=== PATIENT | male | born 1990 | race Caucasian/White ===

== ENCOUNTER 2022-06-05 00:43 | Inpatient (IN) ==
[2022-06-05] MEDS ORDERED: Iopamidol - 370 500 ML MLS IVP ONE (02:13)
[2022-06-05 02:22] LABS: Basophils # 0.1 K/mcL (0.0-0.2); Basophils % 0.5 %; Eosinophils # 0.3 K/mcL (0.0-0.6); Eosinophils % 1.6 %; Hematocrit 44.5 % (37.5-50.1); Immature Granulocytes % 0.3 % (0-4); Lymphocytes # 2.8 K/mcL (0.6-4.6); Lymphocytes % 17.9 %; Mean Corpuscular HGB Conc 33.7 g/dL (31.6-35.5); Mean Corpuscular Hemoglobin 30.4 pg (28.0-33.3); Mean Corpuscular Volume 90.1 fL (83.0-100.0); Mean Platelet Volume 9.3 fL (9.4-12.4); Monocytes # 1.4 K/mcL (0.0-1.3); Monocytes % 8.9 %; Neutrophils # 10.9 K/mcL (1.6-8.9); Platelet Count 454 K/mcL (140-400); Red Blood Count 4.94 M/mcL (4.19-5.50); Red Cell Distribution Width 12.3 % (11.5-14.5); Segmented Neutrophils % 70.8 %; White Blood Count 15.4 K/mcL (4.3-11.1)
[2022-06-05 02:25] LABS: Bacteria,Urine Few per hpf (None-Few); Bilirubin,Urine Negative (Negative); Blood,Urine Trace (Negative); Clarity,Urine Clear (Clear); Color,Urine Yellow (Yellow); Glucose,Urine (UA) Normal (Normal); Ketones,Urine Trace mg/dL (Negative); Leukocyte Esterase,Urine Negative (Negative); Nitrite,Urine Negative (Negative); Protein,Urine 30 mg/dL (Neg-Trace); RBC,Urine 0-3 per hpf (0-3); Specific Gravity,Urine > 1.030 (1.010-1.025); WBC,Urine 0-3 per hpf (0-3)
[2022-06-05 02:42] LABS: Alanine Aminotransferase 24 Units/L (7-52); Albumin 4.5 g/dL (3.5-5.7); Albumin/Globulin Ratio 1.2 (1.1-2.2); Alkaline Phosphatase 70 Units/L (34-104); Amylase 28 Units/L (29-103); Aspartate Amino Transferase 17 Units/L (13-39); BUN/Creatinine Ratio 11 (6-26); Bilirubin,Direct 0.1 mg/dL (0.0-0.2); Bilirubin,Indirect 0.4 mg/dL (0.0-1.0); Bilirubin,Total 0.5 mg/dL (0.3-1.0); Blood Urea Nitrogen 9 mg/dL (6-20); Calcium 9.8 mg/dL (8.6-10.3); Carbon Dioxide 28 mEq/L (23-29); Chloride 101 mEq/L (98-107); Globulin 3.8 g/dL (2.4-3.5); Glucose 81 mg/dL (70-105); Lipase 7 Units/L (11-82); Osmolality,Calculated 280 (280-300); Potassium 3.6 mEq/L (3.5-5.1); Sodium 136 mEq/L (136-145); Total Protein 8.3 g/dL (6.4-8.9)
[2022-06-05] MEDS ORDERED: Ondansetron 4 MG/2 ML VIAL IVP PRN (04:48)
[2022-06-05] MEDS ORDERED: Naloxone 0.4 MG/ML INJ IVP PRN (04:48)
[2022-06-05] MEDS ORDERED: Piperacillin/Tazobactam 3.375 GM in 0.9 % Sodium Chloride Mini Bag 100 ML IVPB SCH (05:00)
[2022-06-05 05:49] LABS: INR 1.3
[2022-06-05] MEDS: Ketorolac 30 MG/ML VIAL IVP PRN ×2 (06:38→17:47)
[2022-06-05] MEDS: Ringers Solution, Lactated 1,000 ML IVC SCH (10:00)
[2022-06-05] MEDS: Piperacillin/Tazobactam 3.375 GM in 0.9 % Sodium Chloride Mini Bag 100 ML IVPB SCH ×3 (15:46→22:51)
[2022-06-05] MEDS: Nicotine 21 MG PATCH.TD24 TD SCH (17:43)
[2022-06-06] MEDS: Ketorolac 30 MG/ML VIAL IVP PRN ×3 (00:22→19:50)
[2022-06-06 02:08] LABS: Hemoglobin 13.9 g/dL (12.9-16.9); Mean Corpuscular HGB Conc 33.9 g/dL (31.6-35.5); Mean Corpuscular Hemoglobin 30.3 pg (28.0-33.3); Mean Corpuscular Volume 89.3 fL (83.0-100.0); Mean Platelet Volume 9.1 fL (9.4-12.4); Platelet Count 437 K/mcL (140-400); Red Blood Count 4.59 M/mcL (4.19-5.50); Red Cell Distribution Width 12.1 % (11.5-14.5); White Blood Count 14.5 K/mcL (4.3-11.1)
[2022-06-06 02:27] LABS: BUN/Creatinine Ratio 11 (6-26); Blood Urea Nitrogen 9 mg/dL (6-20); Calcium 9.3 mg/dL (8.6-10.3); Carbon Dioxide 26 mEq/L (23-29); Chloride 102 mEq/L (98-107); Glucose 87 mg/dL (70-105); Osmolality,Calculated 278 (280-300); Potassium 3.6 mEq/L (3.5-5.1); Sodium 135 mEq/L (136-145)
[2022-06-06] MEDS: Piperacillin/Tazobactam 3.375 GM in 0.9 % Sodium Chloride Mini Bag 100 ML IVPB SCH ×3 (06:45→23:08)
[2022-06-06] MEDS: Nicotine 21 MG PATCH.TD24 TD SCH (07:50)
[2022-06-06] MEDS: Ringers Solution, Lactated 1,000 ML IVC SCH (11:01)
[2022-06-07] MEDS: Ketorolac 30 MG/ML VIAL IVP PRN (03:05)
[2022-06-07 03:20] LABS: Basophils # 0.1 K/mcL (0.0-0.2); Basophils % 0.5 %; Eosinophils # 0.3 K/mcL (0.0-0.6); Eosinophils % 2.5 %; Hematocrit 39.9 % (37.5-50.1); Hemoglobin 13.4 g/dL (12.9-16.9); Immature Granulocytes % 0.3 % (0-4); Lymphocytes # 3.1 K/mcL (0.6-4.6); Lymphocytes % 27.5 %; Mean Corpuscular HGB Conc 33.6 g/dL (31.6-35.5); Mean Corpuscular Hemoglobin 30.2 pg (28.0-33.3); Mean Corpuscular Volume 89.9 fL (83.0-100.0); Mean Platelet Volume 9.1 fL (9.4-12.4); Monocytes # 0.9 K/mcL (0.0-1.3); Monocytes % 7.6 %; Platelet Count 453 K/mcL (140-400); Red Blood Count 4.44 M/mcL (4.19-5.50); Segmented Neutrophils % 61.6 %; White Blood Count 11.4 K/mcL (4.3-11.1)
[2022-06-07 03:37] LABS: BUN/Creatinine Ratio 11 (6-26); Blood Urea Nitrogen 9 mg/dL (6-20); Calcium 9.2 mg/dL (8.6-10.3); Carbon Dioxide 27 mEq/L (23-29); Chloride 104 mEq/L (98-107); Glucose 86 mg/dL (70-105); Osmolality,Calculated 282 (280-300); Potassium 3.8 mEq/L (3.5-5.1); Sodium 137 mEq/L (136-145)
[2022-06-07] MEDS: Piperacillin/Tazobactam 3.375 GM in 0.9 % Sodium Chloride Mini Bag 100 ML IVPB SCH (06:16)
[2022-06-07 06:43] VITALS: BP 108/68; PULSE 69; TEMP 98; O2SAT 99
[2022-06-07] MEDS ORDERED: Iopamidol - 370 500 ML MLS IVP ONE (07:43)
[2022-06-07] MEDS: Nicotine 21 MG PATCH.TD24 TD SCH (08:46)
== END 2022-06-07 10:32 | disposition home or self-care (01) | DRG 720 ==
LOC: EMEROOARM 00:43 → 3ANU 00:43 → SUATTDRO 04:46 → 3ANU 06:10
PROVIDERS: ADMIT Internal Medicine; ATTEND Family Medicine